=== PATIENT | male | born 1945 | race Two or more races ===

== ENCOUNTER → 2017-03-12 | Outpatient (CLI) | payer MEDICARE ==
[~2017-03-12] MED LIST: IOHEXOL 240 MG/ML 50ML VIAL. ONE
[2017-03-12 12:37] LABS: BASO # 0.1 x10^3/uL (0.0-0.2); BASO % 1 % (0-3); EOS # 0.1 x10^3/uL (0.0-0.7); EOS % 1 % (0-3); HEMATOCRIT 47.6 % (39.0-53.0); HEMOGLOBIN 16.2 g/dL (13.0-17.5); LYMPH # 1.6 x10^3/uL (1.0-4.8); LYMPH % 17 % (24-48); MEAN CORPUSCULAR HEMOGLOBIN 29 pg (25-35); MEAN CORPUSCULAR HGB CONC 34 g/dL (31-37); MEAN CORPUSCULAR VOLUME 85 fL (79-100); MONO # 0.5 x10^3/uL (0.0-1.1); MONO % 5 % (0-9); NEUT % 75 % (31-73); PLATELET COUNT 198 x10^3/uL (140-400); RED BLOOD COUNT 5.57 x10^6/uL (4.30-5.70); WHITE BLOOD COUNT 9.3 x10^3/uL (4.0-11.0)
[2017-03-12 12:40] LABS: CALCIUM 9.2 mg/dL (8.5-10.1); GFR 73.9; POTASSIUM 4.7 mmol/L (3.5-5.1)
--- NOTE | 2017-03-12 14:02 | RAD ---
CT of the abdomen and pelvis without contrast, 03/12/2017: History: Abdominal pain No IV contrast was administered for this study as requested. Oral contrast material was given for GI tract opacification. There is a 7 mm low-density lesion in the left lobe of the liver, too small to characterize on these scans. The liver is otherwise unremarkable. A small radiopacity is seen along the posterior wall the gallbladder compatible with a gallstone. No pericholecystic edema is seen. The pancreas is unremarkable. The spleen is of normal size. There is mild bilateral renal cortical scarring. There is mild streaky perinephric edema or scarring bilaterally. The kidneys show no evidence of obstruction. No adrenal abnormality is seen. There is moderate aortoiliac calcific plaquing without evidence of aneurysm. There is a slightly prominent lymph node along the anterior aspect of the celiac axis on the right. It measures 8 mm in short axis dimension and is therefore not definitely pathologically enlarged. There is a portacaval lymph node which measures 13 mm in width and is considered to be mildly enlarged. No other abdominal or pelvic adenopathy is seen. The prostate gland is moderately enlarged measuring 6.3 cm in width. Mild diffuse bladder wall thickening is probably secondary to chronic bladder outlet obstruction. The bowel loops are not dilated. No free fluid or free air is evident in the abdomen or pelvis. The right inguinal ring is dilated. It contains spermatic cord structures and fat. No bowel herniation is evident. IMPRESSION: 1. Cholelithiasis. 2. Moderate nonspecific prostatic enlargement. 3. Mild diffuse bladder wall thickening probably due to chronic bladder outlet obstruction. 4. Mildly enlarged portacaval lymph node. 5. Single tiny lesion in the left lobe of the liver, too small to characterize. PQRS Compliance Statement: One or more of the following individualized dose reduction techniques were utilized for this examination: 1. Automated exposure control 2. Adjustment of the mA and/or kV according to patient size 3. Use of iterative reconstruction technique
== END | disposition home or self-care (01) ==
LOC: CT 12:08
PROVIDERS: ATTEND Family Medicine
DX: K80.20 Calculus of gallbladder without cholecystitis without obstruction (principal); N40.0 Benign prostatic hyperplasia without lower urinary tract symptoms; K76.89 Other specified diseases of liver; R59.9 Enlarged lymph nodes, unspecified
CPT/HCPCS: 36415; 74176; 80048; 85025; Q9966